=== PATIENT | female | born 1935 | race Caucasian/White ===

== ENCOUNTER → 2023-06-07 08:52 | Outpatient (REF) | payer MEDICARE, SELFPAY ==
[2023-06-07 12:10] LABS: % Basophils 0.9 % (0-2); % Eosinophils 4.3 % (0-6); % Immature Granulocytes 0.3 % (0-0.5); % Monocytes 8.5 % (1.7-9.3); Absolute Basophils 0.1 10^3/uL (0-0.2); Absolute Eosinophils 0.3 10^3/uL (0-0.7); Absolute Lymphocytes 1.3 10^3/uL (1.2-3.4); Absolute Monocytes 0.5 10^3/uL (0.1-0.6); Absolute Neutrophils 3.6 10^3/uL (1.4-6.5); Hematocrit 44.2 % (37.0-47.0); Hemoglobin 14.9 g/dL (12.0-16.0); Mean Corp Hgb Conc. 33.7 g/dL (33.0-37.0); Mean Corpuscular Hgb 32.2 pg (27.0-31.0); Mean Corpuscular Volume 95.5 fL (81.0-99.0); Mean Platelet Volume 9.7 fL (7.4-10.4); Nucleated Red Blood Cells % 0 %; Platelet Count 211 10^3/uL (130-400); Red Blood Cell Count 4.63 10^6/uL (4.20-5.40); Red Cell Dist. Width 11.9 % (11.5-14.5); White Blood Cell Count 5.8 10^3/uL (4.8-10.8)
[2023-06-07 12:37] LABS: ALT (SGPT) 20 U/L (0-35); AST (SGOT) 29 U/L (14-36); Alkaline Phosphatase 66 U/L (38-126); Blood Urea Nitrogen 9 mg/dl (7-17); Calcium 9.7 mg/dl (8.4-10.2); Carbon Dioxide 26 mmol/L (22-30); Chloride 108 mmol/L (98-107); Glucose 129 mg/dl (70-99); HDL Cholesterol 62 mg/dl; LDL Cholesterol, Calculated 37 mg/dl; Potassium 4.4 mmol/L (3.5-5.1); Sodium 137 mmol/L (135-145); Total Bilirubin 0.9 mg/dl (0.2-1.3); Total Cholesterol 130 mg/dl (50-199); Total Protein 6.6 g/dl (6.3-8.2); Triglyceride 156 mg/dl (10-149); Very Low Density Lipoprotein 31 mg/dl (0-30); eGFR > 60.00
[2023-06-07 12:49] LABS: TSH Reflex To Free T4 1.99 uIU/ml (0.47-4.68)
== END ==
LOC: HWLAB 08:52
PROVIDERS: ATTENDING PHYSICIAN Internal Medicine
DX: I10 Essential (primary) hypertension (principal); E78.5 Hyperlipidemia, unspecified; E04.2 Nontoxic multinodular goiter
CPT/HCPCS: 36415; 80053; 80061; 84443; 85025

== ENCOUNTER 2023-12-27 09:28 | Emergency (ER) | payer MEDICARE, SELFPAY ==
[2023-12-27 09:39] VITALS: BP 168/80
--- NOTE | 2023-12-27 11:16 | ED.GENMED ---
History of Present Illness
General
Chief Complaint: Musculo-Skeletal Complaint
Time Seen by Provider: 12/27/23 10:43
History of Present Illness
History of Present Illness:
Patient is a 87-year-old woman presenting to the emergency department with knee pain. Patient states for the past 20 years her left knee has been causing her pain. However 2 months ago started worsening. They did go to an urgent care where they
had an x-ray done that showed arthritis. Urgent care prescribed naproxen. Unfortunately the naproxen prescription ran out so they called her family doctor to represcribe it. However they switched her to Tylenol and Voltaren gel at that time.
Patient states that her pain has been uncontrollable since then. She is having difficulty ambulating. No falls. She is able to ambulate. She lives by herself at home. They did make appoint with orthopedics at his next week. No fevers chills
swelling numbness tingling.
Past History
Past History
ED Past Medical History: HTN and Other (Pacemaker)
ED Past Surgical History: Cardiac
Social History
Tobacco: 2nd hand smoke exposure
Alcohol: Other
Personal: Single
Living: alone
Phy Exam
Physical Exam
Physical Exam:
GENERAL: in no acute distress
HEENT: normocephalic, extraocular movements intact, moist oral mucosa
NECK: normal inspection
RESPIRATORY: no respiratory distress, clear to auscultation bilaterally
CARDIOVASCULAR: regular rate and rhythm
ABDOMEN/: soft, non-distended, non-tender to palpation, no rebound or guarding
EXTREMITIES: Left lower extremity with some tenderness to palpation, no swelling, no erythema, full range of motion. 4 out of 5 strength to the lower extremity
NEUROLOGIC: awake and alert, moves all extremities
SKIN: warm
Course
Orders/Labs/Results
Orders:
Orders
12/27/23 10:01
CR Knee - Left 4 Or More View* Urgent
Comment:
Reason For Exam: pain
12/27/23 11:15
Ketorolac [Toradol] 15 mg IM NOW STA
Vital Signs
Initial and Last Documented VS:
Initial Vital Signs
Temp Pulse Resp BP Pulse Ox
97.5 F 78 18 168/80 96
12/27/23 09:39 12/27/23 09:39 12/27/23 09:39 12/27/23 09:39 12/27/23 09:39
Last Documented Vital Signs
Temp Pulse Resp BP Pulse Ox
97.5 F 78 18 168/80 96
12/27/23 09:39 12/27/23 09:39 12/27/23 09:39 12/27/23 09:39 12/27/23 09:39
MDM/Problems Addressed
Differential Diagnosis Includes:
Patient is a 87-year-old woman presenting to the emergency department with left knee pain that has been ongoing for the past 2 months. Vitals are unremarkable and exam does show mild tenderness at the knee with full range of motion. History and
exam does not have any concerns or signs of septic arthritis or cellulitis. Not consistent with DVT. Unlikely to be a fracture given no trauma. X-ray obtained prior to evaluation per my interpretation shows arthritis. Will pain control with
Toradol. I did discuss case management physical therapy evaluation. However patient prefers to go home. She is requesting injection of her knee. I did educate that unfortunately we do have limitations in the ED and the orthopedic appointment
will be able to help her with further intervention such as injections or surgery. Will pain control here. Unclear as to why the naproxen will switch over to Tylenol. Per chart review patient did have a normal creatinine in May of this year.
She does not have any history of kidney issues. Will restart a short course of naproxen until she has been seen by her orthopedic surgeon.
*Critical Care Note
Total Time (30-74mins, 75-104mins- exclusive of procedures): Not Applicable
Update Note
Update Note:
On reevaluation patient is requesting discharge. She is ambulatory. We did discuss pain medications. I did counseling case manager regimen with them to include Tylenol and ibuprofen. We discussed keeping the orthopedic surgery appointment. Strict return
precautions given. Will discharge at this time.
ED Attending Note
-
Portions of this chart may have been created with voice recognition software.� Occasional wrong word or��sound alike� substitutions may have occurred due to the inherent limitations of voice recognition software.
Discharge Plan
Departure
Patient Disposition: Home (Routine Discharge)
Date of Disposition: 12/27/23
Time of Disposition: 11:32
Patient with high blood pressure during this ER visit?: Yes
Discharge Problem:
Knee pain, Arthritis
Instructions: Osteoarthritis, Knee Pain ED
Prescriptions:
No Action
enalapril maleate 5 mg Tablet
5 mg PO BID
atorvastatin 10 mg Tablet
10 mg PO DAILY
aspirin 81 mg Tablet,Delayed Release (Dr/Ec)
81 mg PO DAILY
metoprolol tartrate 25 mg Tablet
25 mg PO DAILY
metoprolol tartrate 50 mg Tablet
50 mg PO QPM
alendronate 70 mg tablet
70 mg PO WEEKLY
acetaminophen 325 mg Tablet
650 mg PO Q4HPRN PRN (Reason: mild pain, fever, headache) Qty: 0 0RF
Referrals:
Shay Ingram MD [Family Provider] -
Activity Restrictions/Additional Instructions:
We discussed pain medications:
You may take Tylenol (also known as Acetaminophen) for pain.
You may take 1000mg Acetaminophen (two extra-strength tablets) per dose, which should be taken every 6-8 hours, or three times a day.
If you have normal strength Tylenol, you can take 650mg (two normal strength tablets) every 4-6 hours.
Do not take more than 3,000mg (3 grams) of Acetaminophen per day.
Never take more than as directed on the bottle.
You may also take Ibuprofen (also known as Motrin or Advil). If taking with Tylenol, alternate and take between dosing.
You may take 400-800mg of Ibuprofen per dose, which should be taken every 6-8 hours.
Do not take more than 3200mg (3.2 grams) of Ibuprofen per day.
Please see your primary care doctor soon to be reevaluated and to make sure that you are improving. We have included information about establishing care with a doctor if you do not have one.
We talked about your evaluation, diagnosis, and treatment in the Emergency Department today. You must see your primary doctor for recheck and followup care in order to evaluate your progress or any changes. Have your doctor recheck the test
results/information from the ED visit. As discussed, RETURN to the ED if you develop worsening/changing symptoms or have no improvement in symptoms after the treatments provided.
Interventions
Interventions:
*Risk Screen - Suicide Last Done: 12/27/23 09:46
*General Assessment Last Done: 12/27/23 09:46
*Neglect/Abuse Screening Last Done: 12/27/23 09:46
*ED COVID-19 Vaccine History Last Done: 12/27/23 11:01
ED-Musculoskeletal Assessment Last Done: 12/27/23 11:01
Discharge Date and Time
Print Language: SAMI
[2023-12-27] MEDS: TORADOL 15 MG IM (11:22)
== END 2023-12-27 12:13 | disposition home or self-care (01) ==
LOC: EMR 09:28
PROVIDERS: EMERGENCY PHYSICIAN Student in an Organized Health Care Education/Training Program; FAMILY PHYSICIAN Internal Medicine
DX: M17.12 Unilateral primary osteoarthritis, left knee (principal); I10 Essential (primary) hypertension; Z95.0 Presence of cardiac pacemaker; Z60.2 Problems related to living alone; Z77.22 Contact with and (suspected) exposure to environmental tobacco smoke (acute) (chronic)
CPT/HCPCS: 99284; 96372; 73564